=== PATIENT | male | born 2000 | race African-American/Black ===

== ENCOUNTER 2023-04-21 01:20 | Emergency (ER) | payer SELFPAY ==
[~2023-04-21] VITALS: Ht 175.3 cm; Wt 72.0 kg
[2023-04-21 01:23] VITALS: BP 126/76; PULSE 88; RESP 20; O2SAT 100
[2023-04-21 01:45] VITALS: TEMP 97.9
[2023-04-21] MEDS: GUAIFENESIN 600MG ER TABLET PO ONE (01:45)
[2023-04-21] MEDS: ACETAMINOPHEN 325MG TABLET PO ONE (01:45)
[2023-04-21 02:14] LABS: BASOPHILS % 0.6 % (0.0-2.0); EOSINOPHILS % 1.4 % (0.0-5.0); HEMOGLOBIN. 15.3 g/dL (14.0-18.0); LYMPHOCYTES % 35.4 % (20.0-50.0); MEAN CORPUSCULAR HEMOGLOBIN 31.3 pg (28.0-32.0); MEAN CORPUSCULAR HGB CONC 33.9 g/dL (31.0-37.0); MEAN CORPUSCULAR VOLUME 92.5 fL (80.0-94.0); MEAN PLATELET VOLUME 7.1 fl (7.4-10.4); MONOCYTES % 10.3 % (2.0-8.0); NEUTROPHILS % 52.3 % (40.0-76.0); PLATELET 366 x1000/uL (130-400); RED BLOOD CELL COUNT 4.87 mill/uL (4.7-6.1); RED CELL DISTRIBUTION WIDTH 13.3 % (11.6-14.6); WHITE BLOOD COUNT 7.1 x1000/uL (4.5-11.0)
[2023-04-21 02:45] LABS: ACETAMINOPHEN < 2 ug/mL (10-30); ALANINE AMINOTRANSFERASE 27 IU/L (10-49); ALBUMIN 4.8 g/dL (3.2-4.8); ASPARTATE AMINOTRANSFERASE 40 IU/L (<34); BILIRUBIN TOTAL 0.6 mg/dL (0.1-1.0); CALCIUM 9.8 mg/dL (8.7-10.4); CARBON DIOXIDE 30 mEq/L (21-32); CHLORIDE 102 mEq/L (98-107); GLUCOSE 80 mg/dL (70-105); POTASSIUM 3.7 mEq/L (3.5-5.1); PROTEIN TOTAL 8.7 g/dL (6.0-8.3); SODIUM 136 mEq/L (136-145); UREA NITROGEN BLOOD 22 mg/dL (9-23)
[2023-04-21 03:50] LABS: ETHANOL BLOOD < 10 mg/dL (<10)
[2023-04-21] MEDS ORDERED: ACET-2708 MT (04:38)
== END 2023-04-21 05:10 | disposition home or self-care (01) ==
LOC: ER 01:20
DX: R05.9 Cough, unspecified (principal); Z59.00 Homelessness unspecified; Z20.822 Contact with and (suspected) exposure to COVID-19
CPT/HCPCS: 36415; 80053; 80307; 80320; 80329; 85025; 87426; 99283; G0480